=== PATIENT | female | born 2000 | race Caucasian/White ===

== ENCOUNTER 2022-07-23 11:12 | Emergency (ER) | payer OTHER ==
[2022-07-23] VITALS (8 sets, daily range): BP systolic 121–142; BP diastolic 58–88
[~2022-07-23] VITALS: Ht 160 cm; Wt 93.6 kg
[2022-07-23] MEDS ORDERED: METOCLOPRAMIDE INJ 10MG/2ML VIAL IV ONE (11:45)
[2022-07-23] MEDS ORDERED: NS 1,000 ML IV ONE (11:45)
[2022-07-23] MEDS ORDERED: ACETAMINOPHEN 500 MG TAB PO ONE (11:45)
[2022-07-23] MEDS ORDERED: diphenhydrAMINE 50MG/ML VIAL IV ONE (11:45)
[2022-07-23 12:07] LABS: BASO # 0.1 10^3/uL (0.0-0.2); BASO % 0.6 % (0.0-1.0); EOS # 0.1 10^3/uL (0.0-0.5); EOS % 1.2 % (0.0-3.0); HEMATOCRIT 37.5 % (36.0-47.0); HEMOGLOBIN 12.5 g/dl (12.0-15.5); LYMPH # 1.8 10^3/uL (1.5-5.0); MEAN CORPUSCULAR HEMOGLOBIN 30.3 pg (27.0-33.0); MEAN CORPUSCULAR HGB CONC 33.3 g/dl (32.0-36.5); MEAN CORPUSCULAR VOLUME 90.8 fl (80.0-96.0); MONO # 0.8 10^3/uL (0.0-0.8); MONO % 7.6 % (2.0-8.0); NEUTROPHILS # 8.2 10^3/uL (1.5-8.5); NEUTROPHILS % 74.2 % (36.0-66.0); PLATELET COUNT, AUTOMATED 256 10^3/uL (150-450); RED BLOOD COUNT 4.13 10^6/uL (4.00-5.40)
[2022-07-23 12:17] LABS: INR 0.93; PROTHROMBIN TIME 12.7 SECONDS (12.5-14.5)
[2022-07-23 12:18] LABS: PARTIAL THROMBOPLASTIN TIME 28.1 SECONDS (24.8-34.2)
[2022-07-23 12:39] LABS: BLOOD UREA NITROGEN 7 MG/DL (9-23); CARBON DIOXIDE LEVEL 24 MMOL/L (20-31); CHLORIDE LEVEL 104 MMOL/L (98-107); CREATININE FOR GFR 0.56 MG/DL (0.55-1.30); GLOMERULAR FILTRATION RATE > 60.0 (>60); GLUCOSE, FASTING 75 MG/DL (60-100); POTASSIUM SERUM 3.9 MMOL/L (3.5-5.1); SODIUM LEVEL 135 MMOL/L (136-145)
[2022-07-23 12:43] LABS: RSV AMPLIFICATION NEGATIVE (NEGATIVE)
[2022-07-23 13:06] LABS: HCG, SERUM QUANTITATIVE 146844.5 MIU/ML (<4.2)
== END 2022-07-23 15:39 | disposition home or self-care (01) ==
LOC: EDBD 11:12 → M ED 11:12
DX: O99.351 Diseases of the nervous system complicating pregnancy, first trimester (principal); G43.809 Other migraine, not intractable, without status migrainosus; O13.1 Gestational [pregnancy-induced] hypertension without significant proteinuria, first trimester; Z3A.00 Weeks of gestation of pregnancy not specified; Z86.69 Personal history of other diseases of the nervous system and sense organs
CPT/HCPCS: 70544; 70551; 80047; 80048; 84702; 85025; 85610; 85730; 87631; 93005; 93041; 94760; 96374; 96375; 99285; J1200; J2765

== ENCOUNTER → 2023-05-06 | Outpatient (CLI) | payer OTHER ==
[~2023-05-06] MED LIST: ACET1TAB55 PO; AMOX875T2 PO; PRENTAB9 PO
== END ==
LOC: M PLAIMG 07:36
PROVIDERS: ATTEND Orthopaedic Surgery Hand Surgery
DX: S51.811A Laceration without foreign body of right forearm, initial encounter (principal); W18.30XA Fall on same level, unspecified, initial encounter; Y92.009 Unspecified place in unspecified non-institutional (private) residence as the place of occurrence of the external cause